=== PATIENT | female | born 1970 | race Caucasian/White ===

== ENCOUNTER 2021-04-22 10:26 | Outpatient (CLI) | payer OTHER, SELFPAY ==
--- NOTE | 2021-04-22 11:30 | NEURO_ITS ---
Impression: # Complains of right upper extremity tingling and weakness. # No Carpal Tunnel Syndrome or ulnar neuropathy. # Normal nerve conduction study. # Normal needle/EMG exam. # Clinical correlation recommended. Nerve Conduction Studies Anti Sensory Summary Table Stim Site NR Peak (ms) P-T Amp (?V) Site1 Site2 Delta-P (ms) Dist (cm) Bhupinder (m/s) Right Median Anti Sensory (2-3nd Digit) Wrist 3.0 59.1 Wrist 2-3nd Digit 3.0 14.0 47 Wrist 2.9 69.4 Wrist 2-3nd Digit 3.0 14.0 47 Right Radial Anti Sensory (Base 1st Digit) Wrist 2.4 27.8 Wrist Base 1st Digit 2.4 0.0 Right Ulnar Anti Sensory (5th Digit) Wrist 2.4 77.8 Wrist 5th Digit 2.4 14.0 58 Motor Summary Table Stim Site NR Onset (ms) O-P Amp (mV) Site1 Site2 Delta-0 (ms) Dist (cm) Bhupinder (m/s) Right Median Motor (Abd Poll Brev) Wrist 3.0 9.5 Elbow Wrist 4.0 26.0 65 Elbow 7.0 6.4 Right Ulnar Motor (Abd Dig Minimi) Wrist 2.4 7.9 A Elbow Wrist 4.2 25.0 60 A Elbow 6.6 7.0 F Wave Studies NR F-Lat (ms) L-R F-Lat (ms) Right Median (Mrkrs) (Abd Poll Brev) 24.50 Right Ulnar (Mrkrs) (Abd Dig Min) 25.08 EMG Side Muscle Nerve Root Ins Act Fibs Amp Dur Recrt Comment Right 1stDorInt Ulnar C8-T1 Nml Nml Nml Nml Nml Right Ext Indicis Radial (Post Int) C7-8 Nml Nml Nml Nml Nml Right Ext Digitorum Radial (Post Int) C7-8 Nml Nml Nml Nml Nml Right BrachioRad Radial C5-6 Nml Nml Nml Nml Nml Right PronatorTeres Median C6-7 Nml Nml Nml Nml Nml Right Abd Poll Brev Median C8-T1 Nml Nml Nml Nml Nml Right ABD Dig Min Ulnar C8-T1 Nml Nml Nml Nml Nml MTDD
== END 2021-04-22 10:27 | disposition home or self-care (01) ==
PROVIDERS: PCP Internal Medicine; Visit Provider Plastic Surgery
DX: R20.2 Paresthesia of skin (principal)
CPT/HCPCS: 95886; 95909